=== PATIENT | female | born 1940 | race Caucasian/White ===

== ENCOUNTER 2019-02-22 01:11 | Inpatient (IN) ==
[2019-02-22] MEDS ORDERED: Ondansetron 4 MG/2 ML VIAL IVP ONE (02:24)
[2019-02-22 02:46] LABS: Basophils # 0.1 K/mcL (0.0-0.2); Basophils % 0.5 %; Eosinophils % 0.2 %; Hematocrit 46.4 % (35.3-44.9); Hemoglobin 15.8 g/dL (11.5-15.4); Immature Granulocytes % 1.2 % (0-4); Lymphocytes # 1.5 K/mcL (0.6-4.6); Lymphocytes % 9.9 %; Mean Corpuscular HGB Conc 34.1 g/dL (31.6-35.5); Mean Corpuscular Hemoglobin 30.2 pg (28.0-33.3); Mean Corpuscular Volume 88.7 fL (83.0-100.0); Mean Platelet Volume 11.8 fL (9.4-12.4); Monocytes # 0.9 K/mcL (0.0-1.3); Monocytes % 5.9 %; Neutrophils # 12.7 K/mcL (1.6-8.9); Platelet Count 247 K/mcL (140-400); Red Blood Count 5.23 M/mcL (3.82-4.97); Red Cell Distribution Width 13.2 % (11.5-14.5); Segmented Neutrophils % 82.3 %; White Blood Count 15.5 K/mcL (4.3-11.1)
[2019-02-22 02:56] LABS: Prothrombin Time 10.8 Seconds (9.4-12.1)
[2019-02-22 02:59] LABS: Activated Partial Thrombo Time 30.7 Seconds (26.0-36.0)
[2019-02-22 03:08] LABS: Alanine Aminotransferase 56 Units/L (7-52); Albumin 4.4 g/dL (3.5-5.7); Albumin/Globulin Ratio 1.4 (1.1-2.2); Alkaline Phosphatase 195 Units/L (34-104); Aspartate Amino Transferase 42 Units/L (13-39); BUN/Creatinine Ratio 16 (6-26); Bilirubin,Direct 0.1 mg/dL (0.0-0.2); Bilirubin,Indirect 0.6 mg/dL (0.0-1.0); Bilirubin,Total 0.7 mg/dL (0.3-1.0); Blood Urea Nitrogen 11 mg/dL (8-23); Calcium 9.7 mg/dL (8.6-10.3); Carbon Dioxide 25 mEq/L (23-29); Chloride 100 mEq/L (98-107); Creatine Kinase 80 Units/L (30-223); Globulin 3.1 g/dL (2.4-3.5); Glucose 234 mg/dL (70-105); Osmolality,Calculated 293 (280-300); Potassium 3.9 mEq/L (3.5-5.1); Sodium 138 mEq/L (136-145); Total Protein 7.5 g/dL (6.4-8.9); Troponin I < 0.03 ng/mL (< 0.04); eGFR For African Americans > 60 (> 60); eGFR For Non-African Americans > 60 (> 60)
[2019-02-22] MEDS ORDERED: cefTRIAXone 1,000 MG in 0.9 % Sodium Chloride Mini Bag 100 ML IVPB ONE (03:13)
[2019-02-22 03:22] LABS: Thyroid Stimulating Hormone 6.636 mcIU/mL (0.340-5.600)
[2019-02-22] MEDS ORDERED: *HR* FentaNYL (PF) 100 MCG/2 ML VIAL IVP ONE (04:55)
[2019-02-22] MEDS ORDERED: 0.9 % Sodium Chloride 1,000 ML IVC SCH (05:00)
[2019-02-22 05:12] LABS: Bilirubin,Urine Negative (Negative); Blood,Urine Negative (Negative); Clarity,Urine Turbid (Clear); Color,Urine Yellow (Yellow); Glucose,Urine (UA) Normal (Normal); Ketones,Urine Negative (Negative); Leukocyte Esterase,Urine Negative (Negative); Nitrite,Urine Negative (Negative); Protein,Urine Negative (Neg-Trace); Specific Gravity,Urine 1.022 (1.010-1.025); Urobilinogen,Urine Normal (Normal)
[2019-02-22 05:19] LABS: Bacteria,Urine None Seen per hpf (None-Few); Hyaline Casts,Urine None Seen per lpf (None-Few); RBC,Urine 0-3 per hpf (0-3); Squamous Epithelial Cell,Urine Many per lpf (None-Few); WBC,Urine 0-3 per hpf (0-3)
[2019-02-22] MEDS ORDERED: Azithromycin 500 MG in 0.9 % Sodium Chloride 250 ML IVPB ONE (05:27)
[2019-02-22] MEDS ORDERED: Naloxone 0.4 MG/ML INJ IVP PRN (07:40)
[2019-02-22] MEDS ORDERED: D5% in Lactated Ringers 1,000 ML IVC SCH (08:45)
[2019-02-22] MEDS ORDERED: Isovue-370 500 ML BOTTLE IVP ONE (09:16)
[2019-02-22] MEDS ORDERED: *HR* LORazepam 2 MG/ML VIAL IVP PRN ×4 (09:21→14:53)
[2019-02-22] MEDS ORDERED: D5% in Water 1,000 ML IVC PRN (09:41)
[2019-02-22] MEDS ORDERED: *HR* Dextrose 50 % in Water (Syg) 50 ML SYRINGE IVP PRN (09:41)
[2019-02-22] MEDS ORDERED: Dextrose Gel 15 GM/37.5 ML TUBE PO PRN ×2 (09:41)
[2019-02-22] MEDS: Ampicillin/Sulbactam 1,500 MG in 0.9 % Sodium Chloride Mini Bag 100 ML IVPB SCH ×3 (10:10→21:47)
[2019-02-22] MEDS: Vitamin B Complex/Vit C/Vit E 1 EACH TABLET PO SCH (10:10)
[2019-02-22 10:40] LABS: Amylase 47 Units/L (29-103); Ethanol < 10 mg/dL (Less than 10); Lipase 14 Units/L (11-82)
[2019-02-22] MEDS ORDERED: Gadolinium Contrast Agent (WT Based) IV PRN (10:47)
[2019-02-22] MEDS: Insulin LISPRO 300 UNITS/3 ML VIAL SQ SCH ×2 (11:44→16:29)
[2019-02-22] MEDS ORDERED: Haloperidol Lactate 5 MG/ML VIAL IVP ONE (14:31)
[2019-02-22] MEDS ORDERED: *HR* LORazepam 2 MG/ML VIAL IVP ONE (15:59)
[2019-02-22] MEDS ORDERED: levETIRAcetam 1,000 MG in 0.9 % Sodium Chloride 100 ML IVPB ONE (16:24)
[2019-02-22] MEDS ORDERED: *HR* Promethazine 25 MG/ML VIAL IVP PRN (16:52)
[2019-02-22] MEDS: Mirtazapine 15 MG TABLET PO SCH (17:23)
[2019-02-22] MEDS: *HR* Heparin 5,000 UNIT/ML VIAL SQ SCH (17:23)
[2019-02-22] MEDS ORDERED: Thiamine (B-1) 100 MG, Folic Acid 1 MG, MVI, adult with vitamin K 10 ML in 0.9 % Sodi... IVPB SCH (18:00)
[2019-02-22] MEDS: Acyclovir 600 MG in D5% in Water 100 ML IVPB SCH (19:35)
[2019-02-23] MEDS: Acyclovir 600 MG in D5% in Water 100 ML IVPB SCH ×3 (01:17→21:20)
[2019-02-23] MEDS: Ampicillin/Sulbactam 1,500 MG in 0.9 % Sodium Chloride Mini Bag 100 ML IVPB SCH ×4 (02:50→21:26)
[2019-02-23] MEDS ORDERED: cefTRIAXone 1,000 MG in Water for inj. (sterile) 10 ML IVP SCH (05:00)
[2019-02-23 06:02] LABS: Basophils % 0.4 %; Eosinophils % 0.1 %; Hematocrit 40.6 % (35.3-44.9); Hemoglobin 13.4 g/dL (11.5-15.4); Immature Granulocytes % 0.4 % (0-4); Lymphocytes # 1.8 K/mcL (0.6-4.6); Lymphocytes % 22.6 %; Mean Corpuscular Hemoglobin 30.6 pg (28.0-33.3); Mean Corpuscular Volume 92.7 fL (83.0-100.0); Mean Platelet Volume 11.6 fL (9.4-12.4); Monocytes # 0.8 K/mcL (0.0-1.3); Monocytes % 10.4 %; Neutrophils # 5.3 K/mcL (1.6-8.9); Platelet Count 181 K/mcL (140-400); Red Blood Count 4.38 M/mcL (3.82-4.97); Red Cell Distribution Width 13.1 % (11.5-14.5); Segmented Neutrophils % 66.1 %
[2019-02-23] MEDS: *HR* Heparin 5,000 UNIT/ML VIAL SQ SCH ×2 (06:02→19:03)
[2019-02-23 06:21] LABS: BUN/Creatinine Ratio 9 (6-26); Blood Urea Nitrogen 5 mg/dL (8-23); Calcium 8.4 mg/dL (8.6-10.3); Carbon Dioxide 30 mEq/L (23-29); Chloride 105 mEq/L (98-107); Glucose 112 mg/dL (70-105); Magnesium 1.9 mg/dL (1.6-2.6); Osmolality,Calculated 294 (280-300); Potassium 3.2 mEq/L (3.5-5.1); Sodium 143 mEq/L (136-145); eGFR For African Americans > 60 (> 60); eGFR For Non-African Americans > 60 (> 60)
[2019-02-23] MEDS ORDERED: Azithromycin 500 MG in 0.9 % Sodium Chloride 250 ML IVPB SCH (07:00)
[2019-02-23] MEDS: Insulin LISPRO 300 UNITS/3 ML VIAL SQ SCH ×3 (07:45→16:44)
[2019-02-23] MEDS ORDERED: Potassium Chloride 20 MEQ, Lidocaine 1% 2 ML in 0.9 % Sodium Chloride 250 ML IVPB ONE (08:28)
[2019-02-23 08:57] LABS: Estimated Average Glucose 114 mg/dl
[2019-02-23] MEDS: Folic Acid 1 MG TABLET PO SCH (11:13)
[2019-02-23] MEDS: Vitamin B Complex/Vit C/Vit E 1 EACH TABLET PO SCH (11:13)
[2019-02-23] MEDS: Acetaminophen 325 MG TABLET PO PRN ×2 (11:50→19:11)
[2019-02-23] MEDS ORDERED: *HR* LORazepam 2 MG/ML VIAL IVP ONE (13:14)
[2019-02-23] MEDS ORDERED: Ondansetron 4 MG/2 ML VIAL IVP PRN (13:50)
[2019-02-23] MEDS: 0.9 % Sodium Chloride 1,000 ML IVC SCH (19:02)
[2019-02-23] MEDS: Mirtazapine 15 MG TABLET PO SCH (19:03)
[2019-02-23 20:35] LABS: Adenovirus Not Detected (Not Detect); Bordetella Pertussis Not Detected (Not Detect); Chlamydophila pneumoniae Not Detected (Not Detect); Coronavirus 229E Not Detected (Not Detect); Coronavirus HKU1 Not Detected (Not Detect); Coronavirus NL63 Not Detected (Not Detect); Coronavirus OC43 Not Detected (Not Detect); Human Metapneumovirus Not Detected (Not Detect); Human Rhinovirus/Enterovirus Not Detected (Not Detect); Influenza A Subtype 2009 H1 Not Detected (Not Detect); Influenza B Not Detected (Not Detect); Mycoplasma pneumoniae Not Detected (Not Detect); Parainfluenza Virus 1 Not Detected (Not Detect); Parainfluenza Virus 2 Not Detected (Not Detect); Parainfluenza Virus 3 Not Detected (Not Detect); Parainfluenza Virus 4 Not Detected (Not Detect); Respiratory Syncytial Virus Not Detected (Not Detect)
[2019-02-24] MEDS: Acyclovir 600 MG in D5% in Water 100 ML IVPB SCH ×4 (02:39→23:57)
[2019-02-24 02:56] LABS: Basophils % 0.4 %; Eosinophils # 0.1 K/mcL (0.0-0.6); Eosinophils % 0.7 %; Hemoglobin 14.2 g/dL (11.5-15.4); Immature Granulocytes % 0.3 % (0-4); Lymphocytes # 1.7 K/mcL (0.6-4.6); Lymphocytes % 22.1 %; Mean Corpuscular Hemoglobin 30.7 pg (28.0-33.3); Mean Corpuscular Volume 92.9 fL (83.0-100.0); Mean Platelet Volume 11.7 fL (9.4-12.4); Monocytes # 0.9 K/mcL (0.0-1.3); Monocytes % 12.4 %; Neutrophils # 4.8 K/mcL (1.6-8.9); Platelet Count 174 K/mcL (140-400); Red Blood Count 4.63 M/mcL (3.82-4.97); Red Cell Distribution Width 13.2 % (11.5-14.5); Segmented Neutrophils % 64.1 %; White Blood Count 7.5 K/mcL (4.3-11.1)
[2019-02-24] MEDS: Ampicillin/Sulbactam 1,500 MG in 0.9 % Sodium Chloride Mini Bag 100 ML IVPB SCH ×4 (03:10→20:17)
[2019-02-24 03:24] LABS: Alanine Aminotransferase 25 Units/L (7-52); Albumin 3.5 g/dL (3.5-5.7); Albumin/Globulin Ratio 1.3 (1.1-2.2); Alkaline Phosphatase 127 Units/L (34-104); Aspartate Amino Transferase 25 Units/L (13-39); BUN/Creatinine Ratio 9 (6-26); Bilirubin,Total 0.7 mg/dL (0.3-1.0); Blood Urea Nitrogen 6 mg/dL (8-23); Calcium 8.5 mg/dL (8.6-10.3); Carbon Dioxide 27 mEq/L (23-29); Chloride 108 mEq/L (98-107); Globulin 2.8 g/dL (2.4-3.5); Glucose 100 mg/dL (70-105); Osmolality,Calculated 298 (280-300); Phosphorous 3.4 mg/dL (2.7-4.5); Potassium 3.5 mEq/L (3.5-5.1); Sodium 145 mEq/L (136-145); Total Protein 6.3 g/dL (6.4-8.9); eGFR For African Americans > 60 (> 60); eGFR For Non-African Americans > 60 (> 60)
[2019-02-24 03:35] LABS: Triiodothyronine (T3) Total 1.16 ng/mL (0.87-1.78)
[2019-02-24 04:40] LABS: Hepatitis B Surface Antigen Nonreactive (Nonreactive)
[2019-02-24 05:09] LABS: Hepatitis C Virus Antibody Nonreactive (Nonreactive)
[2019-02-24 05:10] LABS: Hepatitis A Antibody IgM Nonreactive (Nonreactive); Hepatitis B Core IgM Nonreactive (Nonreactive)
[2019-02-24] MEDS: 0.9 % Sodium Chloride 1,000 ML IVC SCH ×2 (05:49→14:47)
[2019-02-24] MEDS: *HR* Heparin 5,000 UNIT/ML VIAL SQ SCH ×2 (05:49→16:38)
[2019-02-24] MEDS: Insulin LISPRO 300 UNITS/3 ML VIAL SQ SCH ×3 (08:19→16:54)
[2019-02-24] MEDS: Folic Acid 1 MG TABLET PO SCH (08:23)
[2019-02-24] MEDS: Vitamin B Complex/Vit C/Vit E 1 EACH TABLET PO SCH (08:23)
[2019-02-24] MEDS: Acetaminophen 325 MG TABLET PO PRN ×2 (11:10→20:32)
[2019-02-24] MEDS ORDERED: Ketorolac 15 MG/ML VIAL IM PRN (12:50)
[2019-02-24] MEDS: Magic Mouthwash 10 ML UD Cup PO SCH ×2 (14:53→20:23)
[2019-02-24] MEDS: Mirtazapine 15 MG TABLET PO SCH (16:41)
[2019-02-24] MEDS ORDERED: HydrOXYzine 100 MG/2 ML VIAL IM ONE (19:29)
[2019-02-25] MEDS ORDERED: Haloperidol Lactate 5 MG/ML VIAL IVP PRN (00:03)
[2019-02-25] MEDS: Ampicillin/Sulbactam 1,500 MG in 0.9 % Sodium Chloride Mini Bag 100 ML IVPB SCH ×4 (04:36→20:06)
[2019-02-25] MEDS: 0.9 % Sodium Chloride 1,000 ML IVC SCH (04:36)
[2019-02-25] MEDS: *HR* Heparin 5,000 UNIT/ML VIAL SQ SCH ×2 (04:49→16:06)
[2019-02-25 06:54] LABS: Basophils % 0.6 %; Eosinophils # 0.1 K/mcL (0.0-0.6); Eosinophils % 1.5 %; Hematocrit 40.8 % (35.3-44.9); Hemoglobin 14.1 g/dL (11.5-15.4); Immature Granulocytes % 0.1 % (0-4); Lymphocytes # 1.8 K/mcL (0.6-4.6); Lymphocytes % 27.1 %; Mean Corpuscular HGB Conc 34.6 g/dL (31.6-35.5); Mean Corpuscular Hemoglobin 30.8 pg (28.0-33.3); Mean Corpuscular Volume 89.1 fL (83.0-100.0); Mean Platelet Volume 11.7 fL (9.4-12.4); Monocytes # 0.7 K/mcL (0.0-1.3); Monocytes % 10.2 %; Neutrophils # 4.1 K/mcL (1.6-8.9); Platelet Count 173 K/mcL (140-400); Red Blood Count 4.58 M/mcL (3.82-4.97); Red Cell Distribution Width 13.2 % (11.5-14.5); Segmented Neutrophils % 60.5 %; White Blood Count 6.8 K/mcL (4.3-11.1)
[2019-02-25 07:05] LABS: BUN/Creatinine Ratio 14 (6-26); Blood Urea Nitrogen 8 mg/dL (8-23); Calcium 8.2 mg/dL (8.6-10.3); Carbon Dioxide 27 mEq/L (23-29); Chloride 106 mEq/L (98-107); Glucose 89 mg/dL (70-105); Magnesium 1.7 mg/dL (1.6-2.6); Osmolality,Calculated 298 (280-300); Phosphorous 3.4 mg/dL (2.7-4.5); Potassium 2.9 mEq/L (3.5-5.1); Sodium 145 mEq/L (136-145); eGFR For African Americans > 60 (> 60); eGFR For Non-African Americans > 60 (> 60)
[2019-02-25] MEDS: Folic Acid 1 MG TABLET PO SCH (09:21)
[2019-02-25] MEDS: Vitamin B Complex/Vit C/Vit E 1 EACH TABLET PO SCH (09:21)
[2019-02-25] MEDS: Magic Mouthwash 10 ML UD Cup PO SCH ×3 (09:27→18:09)
[2019-02-25] MEDS: Acyclovir 600 MG in D5% in Water 100 ML IVPB SCH ×3 (09:30→22:56)
[2019-02-25] MEDS: Insulin LISPRO 300 UNITS/3 ML VIAL SQ SCH ×3 (09:35→18:07)
[2019-02-25] MEDS: Acetaminophen 325 MG TABLET PO PRN (11:35)
[2019-02-25] MEDS: Potassium Chloride 20 MEQ, Lidocaine 1% 2 ML in 0.9 % Sodium Chloride 250 ML IVPB SCH ×2 (11:38→13:43)
[2019-02-25] MEDS: Ketorolac 15 MG/ML VIAL IVP PRN ×2 (13:43→20:05)
[2019-02-25] MEDS: Mirtazapine 15 MG TABLET PO SCH (16:07)
[2019-02-26] MEDS ORDERED: Haloperidol Lactate 5 MG/ML VIAL IVP ONE (00:10)
[2019-02-26] MEDS ORDERED: *HR* Promethazine 25 MG/ML VIAL IVP ONE (00:10)
[2019-02-26] MEDS: Ampicillin/Sulbactam 1,500 MG in 0.9 % Sodium Chloride Mini Bag 100 ML IVPB SCH ×2 (02:40→08:44)
[2019-02-26 05:25] LABS: BUN/Creatinine Ratio 13 (6-26); Blood Urea Nitrogen 6 mg/dL (8-23); Calcium 8.1 mg/dL (8.6-10.3); Carbon Dioxide 25 mEq/L (23-29); Chloride 107 mEq/L (98-107); Glucose 99 mg/dL (70-105); Magnesium 1.6 mg/dL (1.6-2.6); Osmolality,Calculated 290 (280-300); Phosphorous 3.2 mg/dL (2.7-4.5); Sodium 141 mEq/L (136-145); eGFR For African Americans > 60 (> 60); eGFR For Non-African Americans > 60 (> 60)
[2019-02-26] MEDS: *HR* Heparin 5,000 UNIT/ML VIAL SQ SCH (05:28)
[2019-02-26] MEDS: Ketorolac 15 MG/ML VIAL IVP PRN (08:43)
[2019-02-26] MEDS: Vitamin B Complex/Vit C/Vit E 1 EACH TABLET PO SCH (08:43)
[2019-02-26] MEDS: Folic Acid 1 MG TABLET PO SCH (08:43)
[2019-02-26] MEDS: Acyclovir 600 MG in D5% in Water 100 ML IVPB SCH (08:43)
[2019-02-26] MEDS: Magic Mouthwash 10 ML UD Cup PO SCH ×2 (08:51→12:03)
[2019-02-26] MEDS: Insulin LISPRO 300 UNITS/3 ML VIAL SQ SCH ×2 (08:52→12:06)
[2019-02-26 12:46] VITALS: BP 127/67
== END 2019-02-26 14:01 | disposition home health service (06) | DRG 177 ==
LOC: EMEROOARM 01:11 → CDU 01:11 → SUATTDRO 05:52 → CDU 08:59 → 3BNU 20:38
PROVIDERS: ADMIT Family Medicine; ATTEND Internal Medicine